=== PATIENT | male | born 1950 | race Caucasian/White ===

== ENCOUNTER 2016-10-07 12:51 | Inpatient (IN) | payer OTHER ==
[2016-10-07 13:06] LABS: ALBUMIN 2.8 gm/dl (3.4-5.0); CALCIUM 9.2 mg/dl (8.5-10.1); POTASSIUM 4.2 mMol/L (3.5-5.1)
[2016-10-07] MEDS ORDERED: ALBUTEROL NEB SOL 2.5MG/3ML 1 VIAL SOL NEB PRN (13:50)
[2016-10-07] MEDS ORDERED: SODIUM CHLORIDE 0.9% 1000ML 1,000 ML IV ONE (13:52)
[2016-10-07] MEDS ORDERED: LEVOFLOXACIN 25 MG/ML 500 MG in SODIUM CHLORIDE 0.9% 100 ML 100 ML IV SCH (14:00)
[2016-10-07] MEDS ORDERED: LEVOFLOXACIN 500 MG in 100 ML (PREMIX) IV SCH (14:30)
[2016-10-07] MEDS: SOLUMEDROL 125 MG/2 ML 125 MG/2 ML PDS IV SCH ×2 (14:34→20:11)
[2016-10-07] MEDS: SODIUM CHLORIDE 0.9% FLUSH 10 ML SOL IV SCH ×4 (14:37→21:00)
[2016-10-07] MEDS: PANTOPRAZOLE SODIUM 40 MG ECT PO SCH (14:43)
[2016-10-07] MEDS: ALBUTEROL/IPRATROPIUM 1 VIAL SOL INH SCH ×2 (14:45→20:12)
[2016-10-07] MEDS ORDERED: PATIENT EDUCATION 1 MISC PRN (16:31)
[2016-10-07] MEDS ORDERED: APAP/HYDROCODONE 325/5 TAB PO PRN ×2 (17:46→19:21)
[2016-10-07] MEDS ORDERED: DOCUSATE SODIUM 100 MG SGL PO PRN (19:24)
[2016-10-07] MEDS ORDERED: ALUMINUM/MAGNESIUM 30 ML SUS PO PRN (20:10)
[2016-10-07] MEDS ORDERED: ACETAMINOPHEN 325 MG PO PRN (20:10)
[2016-10-07] MEDS ORDERED: LORAZEPAM 2 MG/ML SOL IV PRN (20:10)
[2016-10-07] MEDS ORDERED: LORAZEPAM 0.5 MG TAB PO PRN (20:10)
[2016-10-07] MEDS ORDERED: ONDANSETRON HCL 4 MG/2 ML SOL IV PRN (20:10)
[2016-10-07] MEDS ORDERED: SODIUM CHLORIDE 0.9% FLUSH 10 ML SOL IV SCH (20:15)
[2016-10-07] MEDS: TAMSULOSIN HYDROCHLORIDE 0.4 MG CAP PO SCH (20:22)
[2016-10-07] MEDS: TERAZOSIN HYDROCHLORIDE 1 MG CAP PO SCH (20:22)
[2016-10-07] MEDS: DEXTROSE/SALINE 0.45/KCL 20MEQ 1,000 ML/1,000 ML SOL IV SCH (20:38)
[2016-10-07] MEDS ORDERED: TERAZOSIN HYDROCHLORIDE 1 MG CAP PO SCH (21:00)
[2016-10-07] MEDS ORDERED: SODIUM CHLORIDE 0.9% FLUSH 10 ML SOL IV PRN (21:10)
[2016-10-08] MEDS: SODIUM CHLORIDE 0.9% FLUSH 10 ML SOL IV SCH ×3 (00:50→14:10)
[2016-10-08] MEDS: SOLUMEDROL 125 MG/2 ML 125 MG/2 ML PDS IV SCH ×2 (02:01→07:23)
[2016-10-08] MEDS: ALBUTEROL/IPRATROPIUM 1 VIAL SOL INH SCH ×4 (02:01→20:29)
[2016-10-08] MEDS: DEXTROSE/SALINE 0.45/KCL 20MEQ 1,000 ML/1,000 ML SOL IV SCH (03:52)
[2016-10-08 07:08] LABS: CALCIUM 8.4 mg/dl (8.5-10.1); POTASSIUM 4.1 mMol/L (3.5-5.1)
[2016-10-08 07:15] LABS: BASOPHILS % (AUTO) 0 % (0-3); EOSINOPHILS % (AUTO) 0 % (0-9); HEMATOCRIT 39 % (39-53); MEAN CORPUSCULAR HGB CONC 35.1 gm/dl (32.0-36.0); MEAN CORPUSCULAR VOLUME 92 fL (80-100); MONOCYTES % (AUTO) 3.1 % (0-12); NEUTROPHILS % (AUTO) 92.3 % (37-80)
[2016-10-08] MEDS: FOLIC ACID 1 MG TAB PO SCH (08:28)
[2016-10-08] MEDS: THIAMINE 100 MG TAB PO SCH (08:28)
[2016-10-08] MEDS: MULTIVITAMIN2 1 EA TAB PO SCH (08:28)
[2016-10-08] MEDS: PANTOPRAZOLE SODIUM 40 MG ECT PO SCH (08:28)
[2016-10-08] MEDS: PREDNISONE 20 MG TAB PO SCH (08:39)
[2016-10-08] MEDS: HUMALOG PEN 100 U/ML SC SCH ×4 (08:42→20:47)
[2016-10-08] MEDS ORDERED: Non-Formulary Medication MISC (Fluticasone Propionate 2 SPR) SCH (09:00)
[2016-10-08] MEDS ORDERED: HUMALOG PEN 100 U/ML SC SCH (11:30)
[2016-10-08] MEDS: TAMSULOSIN HYDROCHLORIDE 0.4 MG CAP PO SCH (20:41)
[2016-10-08] MEDS: TERAZOSIN HYDROCHLORIDE 1 MG CAP PO SCH (20:41)
[2016-10-09] MEDS: SODIUM CHLORIDE 0.9% FLUSH 10 ML SOL IV SCH ×3 (00:07→15:07)
[2016-10-09] MEDS: ALBUTEROL/IPRATROPIUM 1 VIAL SOL INH SCH ×4 (03:04→20:19)
[2016-10-09] MEDS: HUMALOG PEN 100 U/ML SC SCH ×4 (06:40→20:52)
[2016-10-09 07:26] LABS: CALCIUM 8.6 mg/dl (8.5-10.1); POTASSIUM 4.4 mMol/L (3.5-5.1)
[2016-10-09 07:36] LABS: BASOPHILS % (AUTO) 0 % (0-3); EOSINOPHILS % (AUTO) 0 % (0-9); HEMATOCRIT 39 % (39-53); MEAN CORPUSCULAR HGB CONC 35.4 gm/dl (32.0-36.0); MEAN CORPUSCULAR VOLUME 92 fL (80-100); MONOCYTES % (AUTO) 4.4 % (0-12); NEUTROPHILS % (AUTO) 89.7 % (37-80)
[2016-10-09] MEDS: FOLIC ACID 1 MG TAB PO SCH (08:27)
[2016-10-09] MEDS: LEVOFLOXACIN 500 MG TAB PO SCH (08:27)
[2016-10-09] MEDS: PANTOPRAZOLE SODIUM 40 MG ECT PO SCH (08:27)
[2016-10-09] MEDS: MULTIVITAMIN2 1 EA TAB PO SCH (08:27)
[2016-10-09] MEDS: PREDNISONE 20 MG TAB PO SCH (08:27)
[2016-10-09] MEDS: THIAMINE 100 MG TAB PO SCH (08:28)
[2016-10-09] MEDS: FLUTICASONE PROPIONATE SPR NAS SCH (08:31)
[2016-10-09] MEDS ORDERED: BISACODYL 5 MG TAB ECT PO PRN (09:11)
[2016-10-09] MEDS ORDERED: PEG ELECTROLYTE LAVAGE SOLUT 4000 ML PDS PO SCH (09:15)
[2016-10-09] MEDS: AMLODIPINE 5 MG TAB PO SCH (09:57)
[2016-10-09] MEDS: TERAZOSIN HYDROCHLORIDE 1 MG CAP PO SCH (20:18)
[2016-10-09] MEDS: TAMSULOSIN HYDROCHLORIDE 0.4 MG CAP PO SCH (20:18)
[2016-10-10] MEDS: ALBUTEROL/IPRATROPIUM 1 VIAL SOL INH SCH ×2 (03:18→09:34)
[2016-10-10] MEDS ORDERED: LACTATED RINGERS 1,000 ML IV SCH (06:00)
[2016-10-10] MEDS: HUMALOG PEN 100 U/ML SC SCH ×2 (06:40→12:34)
[2016-10-10 07:30] LABS: CALCIUM 8.4 mg/dl (8.5-10.1); POTASSIUM 3.9 mMol/L (3.5-5.1)
[2016-10-10] MEDS ORDERED: PROPOFOL 500 MG/50 ML EMU IV ONE (07:48)
[2016-10-10] MEDS ORDERED: LIDOCAINE HCL 1% MPF SOL ONE (07:48)
[2016-10-10 07:50] LABS: BASOPHILS % (AUTO) 1 % (0-3); EOSINOPHILS % (AUTO) 0 % (0-9); HEMATOCRIT 39 % (39-53); MEAN CORPUSCULAR HGB CONC 35.1 gm/dl (32.0-36.0); MEAN CORPUSCULAR VOLUME 93 fL (80-100); MONOCYTES % (AUTO) 9.7 % (0-12); NEUTROPHILS % (AUTO) 72.2 % (37-80)
[2016-10-10] MEDS ORDERED: PROPOFOL 10 MG/ML EMU IV ONE (08:53)
[2016-10-10 09:33] VITALS: TEMP 96.4
[2016-10-10] MEDS: FLUTICASONE PROPIONATE SPR NAS SCH (09:36)
[2016-10-10] MEDS: FOLIC ACID 1 MG TAB PO SCH (09:43)
[2016-10-10] MEDS: LEVOFLOXACIN 500 MG TAB PO SCH (09:43)
[2016-10-10 09:44] VITALS: RESP 20
[2016-10-10] MEDS: THIAMINE 100 MG TAB PO SCH (09:44)
[2016-10-10] MEDS: MULTIVITAMIN2 1 EA TAB PO SCH (09:44)
[2016-10-10] MEDS: PREDNISONE 20 MG TAB PO SCH (09:44)
[2016-10-10] MEDS: AMLODIPINE 5 MG TAB PO SCH (09:44)
[2016-10-10] MEDS: PANTOPRAZOLE SODIUM 40 MG ECT PO SCH (09:44)
[2016-10-10 10:21] VITALS: BP 161/92; PULSE 111
[2016-10-10 13:46] VITALS: O2SAT 95
[2016-10-11] MEDS ORDERED: OMEPRAZOLE 20 MG CAPSULE PO SCH (07:00)
== END 2016-10-10 14:50 | disposition home or self-care (01) | DRG 194 ==
LOC: V-ACMCRWF 12:51 → ACUTE CARE 12:57
PROVIDERS: ADMIT Emergency Medicine; ATTEND Emergency Medicine
PROC: 0DBH8ZZ Excision of Cecum, Via Natural or Artificial Opening Endoscopic (ICD-10-PCS; 2016-10-10)
PROC: 0DBN8ZZ Excision of Sigmoid Colon, Via Natural or Artificial Opening Endoscopic (ICD-10-PCS; 2016-10-10)
PROC: 0DBL8ZZ Excision of Transverse Colon, Via Natural or Artificial Opening Endoscopic (ICD-10-PCS; 2016-10-10)
PROC: 0DB98ZX Excision of Duodenum, Via Natural or Artificial Opening Endoscopic, Diagnostic (ICD-10-PCS; principal; 2016-10-10 07:45)
PROC: 0DB68ZX Excision of Stomach, Via Natural or Artificial Opening Endoscopic, Diagnostic (ICD-10-PCS; 2016-10-10 07:45)
DX: J18.1 Lobar pneumonia, unspecified organism (principal); J44.0 Chronic obstructive pulmonary disease with (acute) lower respiratory infection; K92.1 Melena; Z72.0 Tobacco use; Z72.89 Other problems related to lifestyle; E86.0 Dehydration; R73.9 Hyperglycemia, unspecified; K57.30 Diverticulosis of large intestine without perforation or abscess without bleeding; K29.80 Duodenitis without bleeding; K29.70 Gastritis, unspecified, without bleeding; D12.0 Benign neoplasm of cecum; D12.5 Benign neoplasm of sigmoid colon; D12.3 Benign neoplasm of transverse colon; K63.5 Polyp of colon
CPT/HCPCS: 36415; 71020; 80048; 80053; 82272; 82962; 85025; 94150; 94640; 94664; 99070; J1815; J1956; J2405; J2930; J7603; J7620; J2001; J2704

== ENCOUNTER 2016-10-19 16:02 | Inpatient (IN) | payer OTHER ==
[2016-10-19] MEDS ORDERED: ONDANSETRON HCL 4 MG/2 ML SOL ONE (16:47)
[2016-10-19] MEDS ORDERED: ONDANSETRON HCL 4 MG/2 ML SOL IV ONE (16:49)
[2016-10-19 16:56] LABS: HEMATOCRIT 50 % (39-53); MEAN CORPUSCULAR HGB CONC 34.4 gm/dl (32.0-36.0); MEAN CORPUSCULAR VOLUME 93 fL (80-100)
[2016-10-19] MEDS ORDERED: SODIUM CHLORIDE 0.9% 1000 ML SOL IV SCH (17:00)
[2016-10-19 17:13] LABS: ALBUMIN 3.2 gm/dl (3.4-5.0); CALCIUM 8.6 mg/dl (8.5-10.1); POTASSIUM 4.8 mMol/L (3.5-5.1)
[2016-10-19 17:15] LABS: BASOPHILS % (MANUAL) 0 % (0-3); EOSINOPHILS % (MANUAL) 0 % (0-9); LYMPHOCYTES % (MANUAL) 1 % (10-50)
[2016-10-19 17:16] LABS: NORMAL RBCS NORMAL RBCS
[2016-10-19] MEDS ORDERED: SODIUM CHLORIDE 0.9% 1000ML 1,000 ML IV ONE (18:33)
[2016-10-19] MEDS ORDERED: ONDANSETRON 4 MG ODT BU PRN (18:37)
[2016-10-19] MEDS ORDERED: ALBUTEROL NEB 1.25 MG/3 ML SOL INH PRN (18:55)
[2016-10-19] MEDS ORDERED: IPRATROPIUM BROMIDE 1 VIAL SOL INH SCH (19:00)
[2016-10-19] MEDS: METRONIDAZOLE 250 MG TAB PO SCH (21:32)
[2016-10-19] MEDS: BUDESONIDE 1 MG/2 ML IH SCH (23:27)
[2016-10-20 07:37] LABS: CALCIUM 8.1 mg/dl (8.5-10.1); POTASSIUM 4.4 mMol/L (3.5-5.1)
[2016-10-20 07:40] LABS: BASOPHILS % (AUTO) 1 % (0-3); EOSINOPHILS % (AUTO) 0 % (0-9); HEMATOCRIT 46 % (39-53); MEAN CORPUSCULAR HGB CONC 34.6 gm/dl (32.0-36.0); MEAN CORPUSCULAR VOLUME 93 fL (80-100); MONOCYTES % (AUTO) 8.1 % (0-12); NEUTROPHILS % (AUTO) 86.8 % (37-80)
[2016-10-20] MEDS ORDERED: OMEPRAZOLE 40 MG ECC PO SCH (09:00)
[2016-10-20] MEDS: BUDESONIDE 1 MG/2 ML IH SCH ×2 (09:00→20:43)
[2016-10-20] MEDS ORDERED: ALBUTEROL NEB SOL 2.5MG/3ML 1 VIAL SOL INH PRN (09:21)
[2016-10-20] MEDS ORDERED: SODIUM CHLORIDE 0.9% FLUSH 10 ML SOL IV PRN (11:10)
[2016-10-20] MEDS: SODIUM CHLORIDE 0.9% 1000ML 1,000 ML IV SCH ×3 (11:17→21:54)
[2016-10-20] MEDS: TERAZOSIN HYDROCHLORIDE 1 MG CAP PO SCH (11:32)
[2016-10-20] MEDS: METRONIDAZOLE 250 MG TAB PO SCH ×3 (11:33→21:50)
[2016-10-20] MEDS: AMLODIPINE 5 MG TAB PO SCH (11:34)
[2016-10-20] MEDS: LISINOPRIL 20 MG TAB PO SCH (11:35)
[2016-10-20] MEDS ORDERED: HYDROMORPHONE HCL 2 MG/ML SOL ONE (12:43)
[2016-10-20] MEDS: HYDROMORPHONE HCL 2 MG/ML SOL IV PRN (12:48)
[2016-10-20] MEDS: PANTOPRAZOLE SODIUM 40 MG ECT PO SCH (12:48)
[2016-10-21] MEDS: SODIUM CHLORIDE 0.9% 1000ML 1,000 ML IV SCH ×3 (01:11→21:58)
[2016-10-21] MEDS: BUDESONIDE 1 MG/2 ML IH SCH ×2 (07:01→18:38)
[2016-10-21 07:25] LABS: BASOPHILS % (AUTO) 1 % (0-3); EOSINOPHILS % (AUTO) 2 % (0-9); HEMATOCRIT 40 % (39-53); MEAN CORPUSCULAR HGB CONC 35.1 gm/dl (32.0-36.0); MEAN CORPUSCULAR VOLUME 93 fL (80-100); MONOCYTES % (AUTO) 14.3 % (0-12); NEUTROPHILS % (AUTO) 70.7 % (37-80)
[2016-10-21 07:35] LABS: ALBUMIN 2.3 gm/dl (3.4-5.0); CALCIUM 7.4 mg/dl (8.5-10.1)
[2016-10-21] MEDS: TERAZOSIN HYDROCHLORIDE 1 MG CAP PO SCH (08:54)
[2016-10-21] MEDS: LISINOPRIL 20 MG TAB PO SCH (08:54)
[2016-10-21] MEDS: PANTOPRAZOLE SODIUM 40 MG ECT PO SCH (08:54)
[2016-10-21] MEDS: AMLODIPINE 5 MG TAB PO SCH (08:54)
[2016-10-21] MEDS: METRONIDAZOLE 250 MG TAB PO SCH ×3 (08:54→20:52)
[2016-10-21] MEDS: LACTOBACILLUS ACIDOPHILUS 1 CAP CAP PO SCH ×2 (11:48→20:52)
[2016-10-21] MEDS ORDERED: APAP/HYDROCODONE 325/5 TAB PO PRN (18:11)
[2016-10-21] MEDS: HYDROMORPHONE HCL 2 MG/ML SOL IV PRN (22:23)
[2016-10-22] MEDS: BUDESONIDE 1 MG/2 ML IH SCH ×2 (06:27→18:41)
[2016-10-22 08:22] LABS: BASOPHILS % (AUTO) 1 % (0-3); EOSINOPHILS % (AUTO) 5 % (0-9); HEMATOCRIT 39 % (39-53); MEAN CORPUSCULAR VOLUME 92 fL (80-100); MONOCYTES % (AUTO) 10.9 % (0-12); NEUTROPHILS % (AUTO) 58.2 % (37-80)
[2016-10-22 08:31] LABS: ALBUMIN 2.3 gm/dl (3.4-5.0); CALCIUM 7.4 mg/dl (8.5-10.1); POTASSIUM 3.8 mMol/L (3.5-5.1)
[2016-10-22] MEDS: LACTOBACILLUS ACIDOPHILUS 1 CAP CAP PO SCH ×2 (08:42→21:02)
[2016-10-22] MEDS: METRONIDAZOLE 250 MG TAB PO SCH ×3 (08:42→21:02)
[2016-10-22] MEDS: TERAZOSIN HYDROCHLORIDE 1 MG CAP PO SCH (08:43)
[2016-10-22] MEDS: PANTOPRAZOLE SODIUM 40 MG ECT PO SCH (08:44)
[2016-10-22] MEDS: AMLODIPINE 5 MG TAB PO SCH (08:44)
[2016-10-22] MEDS: LISINOPRIL 20 MG TAB PO SCH (08:45)
[2016-10-22] MEDS: SODIUM CHLORIDE 0.9% 1000ML 1,000 ML IV SCH ×2 (08:50→16:58)
[2016-10-22 09:03] VITALS: RESP 16
[2016-10-23] MEDS: BUDESONIDE 1 MG/2 ML IH SCH (07:36)
[2016-10-23 07:55] VITALS: BP 160/76; PULSE 74; TEMP 98; O2SAT 97
[2016-10-23 08:29] LABS: ALBUMIN 2.3 gm/dl (3.4-5.0); CALCIUM 7.9 mg/dl (8.5-10.1); POTASSIUM 3.8 mMol/L (3.5-5.1)
[2016-10-23 08:40] LABS: BASOPHILS % (AUTO) 1 % (0-3); EOSINOPHILS % (AUTO) 5 % (0-9); HEMATOCRIT 39 % (39-53); MEAN CORPUSCULAR HGB CONC 33.9 gm/dl (32.0-36.0); MEAN CORPUSCULAR VOLUME 92 fL (80-100); MONOCYTES % (AUTO) 11.1 % (0-12); NEUTROPHILS % (AUTO) 54.7 % (37-80)
[2016-10-23] MEDS: LACTOBACILLUS ACIDOPHILUS 1 CAP CAP PO SCH (09:08)
[2016-10-23] MEDS: TERAZOSIN HYDROCHLORIDE 1 MG CAP PO SCH (09:09)
[2016-10-23] MEDS: METRONIDAZOLE 250 MG TAB PO SCH (09:09)
[2016-10-23] MEDS: PANTOPRAZOLE SODIUM 40 MG ECT PO SCH (09:10)
[2016-10-23] MEDS: AMLODIPINE 5 MG TAB PO SCH (09:10)
[2016-10-23] MEDS: LISINOPRIL 20 MG TAB PO SCH (09:11)
== END 2016-10-23 10:25 | disposition home or self-care (01) | DRG 372 ==
LOC: ED 16:02 → ACUTE CARE 18:08 → UNDOADMIN 18:08 → ACUTE CARE 18:25
PROVIDERS: ADMIT Family Medicine; ATTEND Family Medicine
DX: K52.9 Noninfective gastroenteritis and colitis, unspecified (principal); A04.7 Enterocolitis due to Clostridium difficile; J44.0 Chronic obstructive pulmonary disease with (acute) lower respiratory infection; A08.0 Rotaviral enteritis; N28.9 Disorder of kidney and ureter, unspecified
CPT/HCPCS: 36415; 74177; 80048; 80053; 82272; 85007; 85025; 85027; 94640; 96365; 96374; 99282; 99284; J1170; J2405; Q9967

== ENCOUNTER 2017-02-09 19:52 | Emergency (ER) | payer OTHER ==
[2017-02-09] MEDS ORDERED: SODIUM CHLORIDE 0.9% 1000ML 1,000 ML IV ONE (20:06)
[2017-02-09 20:21] LABS: HEMATOCRIT 45 % (39-53); MEAN CORPUSCULAR VOLUME 92 fL (80-100)
[2017-02-09] MEDS: SODIUM CHLORIDE 0.9% FLUSH 10 ML SOL IV PRN ×3 (20:30→21:28)
[2017-02-09 20:36] LABS: CALCIUM 9.4 mg/dl (8.5-10.1); GLOM FILT RATE 48 mL/min (>60); MAGNESIUM 2.2 mg/dl (1.8-2.4); POTASSIUM 4.1 mMol/L (3.5-5.1); SODIUM 136 mMol/L (136-145)
[2017-02-09 20:40] LABS: BASOPHILS % (MANUAL) 0 % (0-3); EOSINOPHILS % (MANUAL) 0 % (0-9); LYMPHOCYTES % (MANUAL) 20 % (10-50); NORMAL RBCS PRESENT
[2017-02-09] MEDS ORDERED: HYDROMORPHONE 1 MG/ML SYRINGE ONE (20:47)
[2017-02-09] MEDS ORDERED: ONDANSETRON HCL 4 MG/2 ML SOL ONE (20:47)
[2017-02-09 20:56] VITALS: TEMP 97.4
[2017-02-09] MEDS ORDERED: HYDROMORPHONE 1 MG/ML SYRINGE IV ONE (20:57)
[2017-02-09] MEDS ORDERED: ONDANSETRON HCL 4 MG/2 ML SOL IV ONE (21:00)
[2017-02-09] MEDS ORDERED: MIDAZOLAM 2 MG/2 ML SOL IV ONE ×2 (21:22→22:15)
[2017-02-09] MEDS ORDERED: MIDAZOLAM 2 MG/2 ML SOL ONE ×2 (21:25→22:11)
[2017-02-09 21:36] VITALS: BP 101/67; PULSE 113; RESP 28; O2SAT 93
== END 2017-02-09 23:04 | disposition short-term general hospital (02) | DRG 563 ==
LOC: ED 19:52
DX: S43.014A Anterior dislocation of right humerus, initial encounter (principal); R42 Dizziness and giddiness; W19.XXXA Unspecified fall, initial encounter
CPT/HCPCS: 70450; 71010; 73020; 73200; 80048; 83735; 84484; 85007; 85027; 93005; 99285; J2250; J2405; J1170

== ENCOUNTER 2017-03-27 17:38 | Emergency (ER) | payer OTHER ==
[2017-03-27] MEDS ORDERED: PREDNISONE 20 MG TAB PO ONE (18:19)
[2017-03-27] MEDS ORDERED: ALBUTEROL/IPRATROPIUM 1 VIAL SOL INH ONE (18:19)
[2017-03-27] MEDS ORDERED: BUDESONIDE 0.25 MG/2 ML SUS INH ONE (18:19)
[2017-03-27] MEDS ORDERED: AZITHROMYCIN 250 MG TAB PO ONE (18:36)
[2017-03-27] MEDS ORDERED: PREDNISONE 20 MG TAB ONE (18:41)
[2017-03-27] MEDS ORDERED: AZITHROMYCIN 250 MG TAB ONE (18:41)
[2017-03-27] MEDS ORDERED: ALBUTEROL/IPRATROPIUM 1 VIAL SOL ONE (18:41)
[2017-03-27 18:51] VITALS: PULSE 92; RESP 20; O2SAT 98
[2017-03-27 18:59] VITALS: BP 139/70; TEMP 98.2
== END 2017-03-27 19:35 | disposition home or self-care (01) | DRG 192 ==
LOC: ED 17:38
DX: J44.9 Chronic obstructive pulmonary disease, unspecified (principal)
CPT/HCPCS: 71020; 99283; 99284; J7620

== ENCOUNTER 2018-05-06 18:09 | Emergency (ER) | payer OTHER ==
[2018-05-06 18:23] VITALS: RESP 20; TEMP 98.3
[2018-05-06] MEDS ORDERED: NITROGLYCERIN 0.4 MG TAB SL PRN (18:24)
[2018-05-06] MEDS ORDERED: SODIUM CHLORIDE 0.9% FLUSH 10 ML SOL IV PRN (18:24)
[2018-05-06] MEDS ORDERED: ASPIRIN 81 MG CHEWABLE CTB PO STA (18:24)
[2018-05-06] MEDS ORDERED: MORPHINE SULFATE 10 MG/ML SOL IV PRN (18:24)
[2018-05-06] MEDS ORDERED: ASPIRIN 81 MG CHEWABLE CTB ONE (18:30)
[2018-05-06] MEDS ORDERED: SODIUM CHLORIDE 0.9% 1000ML 500 ML IV SCH (18:30)
[2018-05-06 18:35] LABS: BASOPHILS % (AUTO) 1 % (0-3); EOSINOPHILS % (AUTO) 5 % (0-9); HEMATOCRIT 45 % (39-53); HEMOGLOBIN 15.3 gm/dl (13.5-17.7); LYMPHOCYTES % (AUTO) 20.6 % (10-50); MEAN CORPUSCULAR HEMOGLOBIN 31.7 pg (27.0-32.0); MEAN CORPUSCULAR HGB CONC 33.8 gm/dl (32.0-36.0); MEAN CORPUSCULAR VOLUME 94 fL (80-100); MONOCYTES % (AUTO) 9.2 % (0-12); NEUTROPHILS % (AUTO) 64.2 % (37-80)
[2018-05-06] MEDS ORDERED: ALBUTEROL/IPRATROPIUM 1 VIAL SOL INH ONE (18:35)
[2018-05-06] MEDS ORDERED: SOLUMEDROL 125 MG/2 ML 125 MG/2 ML PDS IV ONE (18:39)
[2018-05-06] MEDS ORDERED: AZITHROMYCIN 250 MG TAB PO ONE (18:39)
[2018-05-06] MEDS ORDERED: SOLUMEDROL 125 MG/2 ML 125 MG/2 ML PDS ONE (18:45)
[2018-05-06] MEDS ORDERED: AZITHROMYCIN 250 MG TAB ONE (18:45)
[2018-05-06] MEDS ORDERED: ALBUTEROL/IPRATROPIUM 1 VIAL SOL ONE (18:45)
[2018-05-06 18:47] LABS: INR 0.93 (0.86-1.12)
[2018-05-06 18:52] LABS: ALBUMIN 3.5 gm/dl (3.4-5.0); ALKALINE PHOSPHATASE 73 IU/L (46-116); ALT 29 IU/L (14-63); AST 18 IU/L (15-37); BILIRUBIN,TOTAL 0.5 mg/dl (0.2-1.0); BLOOD UREA NITROGEN 23 mg/dl (7-18); CALCIUM 9.2 mg/dl (8.5-10.1); CARBON DIOXIDE 28.1 mEq/L (21-32); CHLORIDE 102 mMol/L (98-107); CREATININE 1.78 mg/dl (0.80-1.30); GLUCOSE 98 mg/dl (74-106); POTASSIUM 3.7 mMol/L (3.5-5.1); SODIUM 139 mMol/L (136-145); TOTAL PROTEIN 7.1 gm/dl (6.4-8.2); TROP I < 0.017 ng/ml (0.000-0.056)
[2018-05-06 20:49] VITALS: BP 159/99; PULSE 90; O2SAT 94
== END 2018-05-06 20:35 | disposition home or self-care (01) | DRG 192 ==
LOC: ED 18:09
DX: J44.1 Chronic obstructive pulmonary disease with (acute) exacerbation (principal); F17.200 Nicotine dependence, unspecified, uncomplicated; R07.89 Other chest pain
CPT/HCPCS: 36415; 71045; 80053; 83880; 84484; 85025; 85610; 85730; 87040; 93005; 96374; 99284; 99285; J2930; A9270-GY